=== PATIENT | female | born 1980 | race Caucasian/White ===

== ENCOUNTER 2023-11-27 18:02 | Emergency (ER) | payer MEDICAID ==
[~2023-11-27] VITALS: Ht 154.9 cm; Wt 74.8 kg
[2023-11-27 18:23] VITALS: BP 122/63; PULSE 80; RESP 16; TEMP 98.2; O2SAT 99
== END 2023-11-27 19:00 | disposition left against medical advice (07) ==
LOC: ER 18:02
DX: R09.81 Nasal congestion (principal); Z53.21 Procedure and treatment not carried out due to patient leaving prior to being seen by health care provider
CPT/HCPCS: 99281